=== PATIENT | female | born 2005 | race Caucasian/White ===

== ENCOUNTER 2024-03-05 05:44 | Emergency (ER) | payer OTHER ==
[~2024-03-05] VITALS: Ht 152.4 cm; Wt 41.0 kg
[2024-03-05 06:29] VITALS: BP 100/65; RESP 18; O2SAT 100
[2024-03-05 06:30] VITALS: PULSE 88
[2024-03-05] MEDS: TETANUS, DIPHTHERIA, PERTUSSIS VAC/PF 0.5ML (>10YR OLD) IM ONE (07:00)
[2024-03-05] MEDS: BACITRACIN ZINC OINT UDPKT TOP ONE (07:00)
[2024-03-05] MEDS: LIDOCAINE HCL/PF 1% 10 MG/ML 5ML VIAL INFIL ONE (07:00)
[2024-03-05] MEDS ORDERED: BO1 TP (08:44)
[2024-03-05 09:19] VITALS: TEMP 98.5
[2024-03-05] MEDS: ACETAMINOPHEN 325MG TABLET PO ONE (09:19)
== END 2024-03-05 10:22 | disposition home or self-care (01) ==
LOC: ER 06:01
DX: S01.312A Laceration without foreign body of left ear, initial encounter (principal); X58.XXXA Exposure to other specified factors, initial encounter; Y93.89 Activity, other specified; Y92.89 Other specified places as the place of occurrence of the external cause; Y99.8 Other external cause status
CPT/HCPCS: 99283; 12011; J3490; 99282